=== PATIENT | female | born 1985 | race Caucasian/White ===

== ENCOUNTER 2019-08-12 12:10 | Day surgery (SDC) | payer OTHER ==
[2019-08-11 15:02] VITALS: BMI 28.7
[2019-08-12] MEDS ORDERED: MIDAZOLAM HCL 2 MG/2 ML SINGLE DOSE VIAL ONE (13:35)
[2019-08-12] MEDS ORDERED: PROPOFOL 20 ML ONE (13:35)
[2019-08-12] MEDS ORDERED: DEXAMETHASONE SOD PHOSPHATE 4 MG/1 ML VIAL ONE (13:38)
[2019-08-12] MEDS ORDERED: LIDOCAINE HCL/PF 2% SDV 5ML VIAL ONE (13:38)
[2019-08-12] MEDS ORDERED: ceFAZolin SODIUM 1 GM VIAL ONE (14:51)
[2019-08-12] MEDS ORDERED: ceFAZolin SODIUM 1 GM VIAL IVPB ONE (14:52)
[2019-08-12] MEDS ORDERED: KETOROLAC TROMETHAMINE 30 MG/1 ML VIAL ONE (15:00)
[2019-08-12] MEDS ORDERED: ONDANSETRON 4 MG/2 ML VIAL IVPUSH PRN (15:21)
[2019-08-12] MEDS ORDERED: oxyCODONE HCL 5 MG TABLET PO PRN (15:21)
--- NOTE | 2019-08-12 15:37 | OP ---
Operative Note - Note: Operative Date: 08/12/19 Pre-Operative Diagnosis: Missed Ab Operation: surgical tx of missed Ab (suction/D&C) Findings: small AV uterus, no pelvic or adnexal masses. No POC at end of procedure. Post-Operative Diagnosis: Same as Pre-op Surgeon: Rome Santacruz Anesthesiologist/CHANGE MANAGEMENT: Bhargav Bravo Anesthesia: General Specimens Removed: POC Estimated Blood Loss (mls): 30 Blood Volume Replaced (mls): 0 Fluid Volume Replaced (mls): 700 Operative Report Dictated: Yes
[2019-08-12 16:08] VITALS: TEMP 97.9
[2019-08-12] MEDS ORDERED: oxyCODONE HCL 5 MG TABLET ONE (16:09)
[2019-08-12] MEDS ORDERED: oxyCODONE HCL 5 MG TABLET PO ONE (16:10)
[2019-08-12 18:17] VITALS: BP 100/56; PULSE 65
--- NOTE | 2019-08-16 15:15 | PATH ---
Surgical Pathology Report Patient Name: MADHAV MERINO [facility]. Rec. #: [id number] /Age/Gender: 1985 (Age: 33) / F Account: [id number] Location: [facility] SURGICAL Taken: 08/12/2019 Received: 08/15/2019 Reported: 08/16/2019 Physicians: Rome Santacruz M.D. Specimen(s) Received PRODUCTS OF CONCEPTION Clinical History Missed Final Diagnosis PRODUCTS OF CONCEPTION, DILATION AND CURETTAGE: IMMATURE CHORIONIC VILLI AND DECIDUA CONSISTENT WITH PRODUCTS OF CONCEPTION. Electronically Signed Susana Rizvi M.D. Gross Description Received in formalin labeled "products of conception," is an 8.0 x 4.5 x 1.0 cm aggregate of alamo-brown soft tissue fragments. Villous tissue is identified. No somatic tissue is identified. A public service representative portion is submitted in one cassette. 08/15/2019 [facility]08/15/2019
--- NOTE | 2019-08-30 15:38 | OP ---
DATE OF OPERATION: 08/12/2019 PREOPERATIVE DIAGNOSIS: Missed under 14 weeks. POSTOPERATIVE DIAGNOSIS: Missed under 14 weeks. OPERATION: Suction dilation and curettage (surgical treatment of missed ). SURGEON: Eden Lopez MD ANESTHESIOLOGIST: Bhargav Bravo MD INTRAVENOUS FLUIDS: 700 mL. ESTIMATED BLOOD LOSS: 30 mL. PATHOLOGY: Products of conception. COMPLICATIONS: None. ANESTHESIA: General. FINDINGS: Examination under anesthesia showed a small, anteverted uterus freely mobile within pelvic cavity. No pelvic or adnexal masses were noted. Products of conception were observed on suction curettage. No retained products of conception were noted at the end of the procedure. PROCEDURE: The patient was met preoperatively. Risks, benefits, alternatives of surgery were discussed at length. The consent form was reviewed, and all questions were answered. The patient verbalized her understanding and requested to proceed with the surgery. The patient was brought to the OR with the IV running. She was placed on the surgical table in a supine position. The general anesthesia was achieved without difficulty. The patient was then placed in a dorsal lithotomy position using adjustable Javier stirrups. She was examined under anesthesia with the findings as described above. The patient was prepped and draped in the usual sterile fashion. A weighed speculum was introduced inside the vagina with good visualization of the cervix. The cervix was grasped with a single-tooth tenaculum. The cervical os was dilated to accommodate the size 23 Siddiqui dilator. A 7-mm suction curette was gently introduced inside the uterine cavity. A vacuum curettage was performed without complications. Once this was completed, a sharp curette was used to confirm no retained products of conception. Once this was done, all of other instruments were removed from the patient. Excellent hemostasis was noted. Sponge, lap, needle counts were correct once again. Excellent hemostasis was confirmed. The patient was then returned to supine position. She was transferred to recovery room in stable condition and awake. EDEN LOPEZ M.D. [id number]
== END 2019-08-12 18:17 | disposition home or self-care (01) ==
LOC: JASU-SURG 12:10
PROVIDERS: ATTEND Obstetrics & Gynecology
PROC: 10D17ZZ Extraction of Products of Conception, Retained, Via Natural or Artificial Opening (ICD-10-PCS; principal; 2019-08-12 14:00)
DX: O02.1 Missed abortion (principal)
CPT/HCPCS: 86850; 86900; 86901; 88305-TC; 94760

== ENCOUNTER 2022-01-13 06:00 | Inpatient (IN) | payer OTHER ==
[2022-01-13] MEDS ORDERED: ELECTROLYTE-148 SOLN 1,000 ML IV ONE (06:05)
[2022-01-13] MEDS ORDERED: CITRIC ACID/SODIUM CITRATE 30 ML UNIT-DOSE CUP PO ONE (06:05)
[2022-01-13 06:41] VITALS: BMI 34.3
[2022-01-13] MEDS: ELECTROLYTE-148 SOLN 1,000 ML IV SCH (08:00)
[2022-01-13] MEDS ORDERED: morphine SULFATE/PF 1 MG/2 ML (2cc Syringe - QUVA) ONE (08:07)
[2022-01-13] MEDS ORDERED: OXYTOCIN 10 UNITS/ML VIAL ONE (08:17)
[2022-01-13] MEDS ORDERED: ceFAZolin SODIUM 1 GM VIAL ONE ×2 (08:17→15:01)
[2022-01-13] MEDS ORDERED: KETOROLAC TROMETHAMINE 30 MG/1 ML VIAL ONE (08:17)
[2022-01-13] MEDS ORDERED: ONDANSETRON 4 MG/2 ML VIAL ONE (08:17)
[2022-01-13] MEDS ORDERED: morphine SULFATE/PF 1 MG/2 ML (2cc Syringe - QUVA) IT ONE (08:24)
[2022-01-13] MEDS ORDERED: METHYLERGONOVINE MALEATE 0.2 MG/1 ML AMP IM PRN (09:55)
[2022-01-13 10:26] LABS: CORD HCO3 25.4 mmHg (20-29); CORD PCO2 48.8 mmHg (30-78); CORD pH 7.335 (7.14-7.44)
[2022-01-13 10:27] LABS: CORD BASE EXCESS -1.7 mmol/L (0-2); CORD HCO3 22.7 mmHg (20-29); CORD PCO2 37.9 mmHg (30-78); CORD pH 7.396 (7.14-7.44)
[2022-01-13] MEDS ORDERED: ACETAMINOPHEN INJECTION 100 ML IVPB ONE (10:38)
[2022-01-13] MEDS ORDERED: ONDANSETRON 4 MG/2 ML VIAL IVPUSH PRN ×2 (10:44)
[2022-01-13] MEDS ORDERED: ACETAMINOPHEN 1000 MG/100 ML BAG IVPB ONE (10:47)
[2022-01-13] MEDS: OXYTOCIN 20 UNITS in 0.9% NS 20 UNIT/1,000 ML INFUS.BAG IV SCH (11:00)
[2022-01-13] MEDS ORDERED: WITCH HAZEL 50% (TUCKS) 40 PAD/JAR PAD TP PRN (11:59)
[2022-01-13] MEDS: PRENATAL VITAMINS W/ FOLIC ACID TABLET (FP) PO SCH (12:00)
[2022-01-13] MEDS ORDERED: BENZOCAINE 20% 57 GM BOTTLE TP PRN (12:06)
[2022-01-13] MEDS ORDERED: BENZOCAINE 28 GM HEMORRHOIDAL OINTMENT TP PRN (12:06)
[2022-01-13] MEDS ORDERED: ACETAMINOPHEN 325 MG TABLET (FP) PO PRN (12:07)
[2022-01-13] MEDS ORDERED: DEXTROSE 5%-WATER - 50 ML IVPB ONE (15:01)
[2022-01-13] MEDS: CEFAZOLIN 1 GM in DEXTROSE 5%-WATER - 50 ML IVPB SCH (15:17)
[2022-01-13] MEDS: IBUPROFEN 800 MG/8 ML IJ IVPB PRN (15:17)
[2022-01-13] MEDS: oxyCODONE HCL 5 MG TABLET PO PRN (19:58)
[2022-01-14] MEDS ORDERED: DEXTROSE 5%-WATER - 50 ML IVPB ONE ×2 (00:33→11:11)
[2022-01-14] MEDS ORDERED: ceFAZolin SODIUM 1 GM VIAL ONE ×2 (00:33→11:11)
[2022-01-14] MEDS: CEFAZOLIN 1 GM in DEXTROSE 5%-WATER - 50 ML IVPB SCH ×2 (00:37→09:30)
[2022-01-14] MEDS: IBUPROFEN 800 MG/8 ML IJ IVPB PRN (01:04)
[2022-01-14 07:06] LABS: BASO % 0.3 % (0-2.0); EOS % 0.5 % (0-4.5); HEMATOCRIT 31.9 % (32.4-45.2); HEMOGLOBIN 10.8 GM/dL (10.7-15.3); LYMPH % 16.7 % (8-40); MCH 29.4 pg (25.7-33.7); MCHC 33.9 g/dl (32.0-36.0); MEAN PLT VOLUME 11.4 fl (7.5-11.1); NEUT % 76.5 % (42.8-82.8); PLATELET COUNT 100 10^3/uL (134-434); RBC 3.67 M/mm3 (3.60-5.2); RDW 15.7 % (11.6-15.6); WHITE BLOOD COUNT 9.8 K/mm3 (4.0-10.0)
[2022-01-14] MEDS: IBUPROFEN 600 MG TABLET (FP) PO PRN (10:25)
[2022-01-14] MEDS: PRENATAL VITAMINS W/ FOLIC ACID TABLET (FP) PO SCH (11:36)
[2022-01-14] MEDS: ENOXAPARIN NA (PORCINE) 40 MG/0.4 ML DISP.SYRIN SQ SCH (11:37)
[2022-01-14] MEDS: oxyCODONE HCL 5 MG TABLET PO PRN ×3 (11:40→22:09)
[2022-01-14] MEDS: SIMETHICONE 80 MG TAB.CHEW (FP) PO PRN ×3 (11:41→22:09)
[2022-01-14] MEDS ORDERED: BISACODYL 10 MG SUPP.RECT RC PRN (12:06)
[2022-01-14] MEDS: SENNOSIDES/DOCUSATE COMBO (SENNA PLUS) TABLET (UD) PO PRN (22:09)
[2022-01-15] MEDS: oxyCODONE HCL 5 MG TABLET PO PRN ×2 (03:09→12:51)
[2022-01-15] MEDS: SIMETHICONE 80 MG TAB.CHEW (FP) PO PRN ×3 (03:09→20:31)
[2022-01-15] MEDS: ELECTROLYTE-148 SOLN 1,000 ML IV SCH ×3 (03:16→03:17)
[2022-01-15] MEDS: OXYTOCIN 20 UNITS in 0.9% NS 20 UNIT/1,000 ML INFUS.BAG IV SCH (03:16)
[2022-01-15] MEDS: IBUPROFEN 600 MG TABLET (FP) PO PRN (06:03)
[2022-01-15] MEDS: PRENATAL VITAMINS W/ FOLIC ACID TABLET (FP) PO SCH (10:38)
[2022-01-15] MEDS: ENOXAPARIN NA (PORCINE) 40 MG/0.4 ML DISP.SYRIN SQ SCH (10:38)
[2022-01-15] MEDS: IBUPROFEN 600 MG TABLET (FP) PO SCH ×2 (15:42→20:31)
[2022-01-15] MEDS: SENNOSIDES/DOCUSATE COMBO (SENNA PLUS) TABLET (UD) PO PRN (20:32)
[2022-01-16] MEDS: IBUPROFEN 600 MG TABLET (FP) PO SCH ×2 (03:08→08:44)
[2022-01-16 06:39] LABS: BASO % 0.4 % (0-2.0); EOS % 2.6 % (0-4.5); HEMATOCRIT 32.3 % (32.4-45.2); HEMOGLOBIN 10.7 GM/dL (10.7-15.3); LYMPH % 25.4 % (8-40); MCH 28.8 pg (25.7-33.7); MCHC 33.1 g/dl (32.0-36.0); MEAN CELL VOLUME 87.1 fl (80-96); MONO % 5.1 % (3.8-10.2); NEUT % 66.5 % (42.8-82.8); PLATELET COUNT 131 10^3/uL (134-434); RBC 3.71 M/mm3 (3.60-5.2); RDW 15.4 % (11.6-15.6); WHITE BLOOD COUNT 7.6 K/mm3 (4.0-10.0)
[2022-01-16] MEDS: PRENATAL VITAMINS W/ FOLIC ACID TABLET (FP) PO SCH (10:45)
[2022-01-16] MEDS: ENOXAPARIN NA (PORCINE) 40 MG/0.4 ML DISP.SYRIN SQ SCH (10:46)
[2022-01-16 11:52] VITALS: BP 104/64; PULSE 70; TEMP 98.7
== END 2022-01-16 12:10 | disposition home or self-care (01) | DRG 540 ==
LOC: JLDR 06:00 → J3W 11:15
PROVIDERS: ADMIT Obstetrics & Gynecology; ATTEND Obstetrics & Gynecology
PROC: 10D00Z1 Extraction of Products of Conception, Low, Open Approach (ICD-10-PCS; principal; 2022-01-13)
PROC: 0UB70ZZ Excision of Bilateral Fallopian Tubes, Open Approach (ICD-10-PCS; 2022-01-13)
DX: O34.218 Maternal care for other type scar from previous cesarean delivery (principal); Z3A.39 39 weeks gestation of pregnancy; Z37.0 Single live birth; Z30.2 Encounter for sterilization
CPT/HCPCS: 36415; 36600; 82803; 85025; 86762; 88302-TC; 88307-TC